=== PATIENT | female | born 1960 | race Caucasian/White ===

== ENCOUNTER 2021-07-19 03:22 | Inpatient (IN) ==
[2021-07-19 03:41] VITALS: BMI 34.2
[2021-07-19] MEDS ORDERED: MORPHINE SULFATE INJ 4 MG IVP ONE ×2 (04:04→07:52)
--- NOTE | 2021-07-19 04:10 | DR.CP ---
HPI <Mamadou Reyes - Last Filed: 07/19/21 08:34> Time Seen Time Seen by Provider: 07/19/21 03:36 PCP Primary Care Physician: DESIREE Saldivar Chief Complaint Doctor Comments: 60 y/o female presents with left chest pain over the past 3-4 days. Had gradual onset, was sharp/stabbing. Has been fairly constant. Worsened tonight, now more severe. Located left lateral chest, under the arm. Does not radiate. Nothing makes it better, nothing makes worse. No h/o DVT/PEs, is not pleuritic. Denies known trauma or recent illness. Has an extensive cardiac hx. Denies dyspnea, N/V diaphoresis, rash. Chief Complaint:: SHARP PAIN UNDER LEFT AXILLA AND RADIATES INTO BACK OFF AND ON X 4 DAYS. SEVERE TONIGHT. UNABLE TO REST. COVID-19 Coronavirus risk:travel/contact w/high risk person: No Has patient experienced Coronavirus symptoms: No Reviewed Nurses Notes Review: Yes Source History Provided: Patient Mode of Arrival Mode of Arrival: Ambulatory Timing Onset of Chief Complaint: 07/15/21 Location Chest Pain Radiation Location: Left Shoulder PMH <Mamadou Reyes - Last Filed: 07/19/21 08:34> PMH Past Medical History: Yes Past Medical History: Asthma, Coronary Artery Disease and Hypertension Past Medical History Comment: FIBROMYALGIA, BONE SPURS Past Surgical History: Yes Surgical History: Cholecystectomy and Hysterectomy Past Surgical History Comment: MESH IMPLANT HERNIA Family History History of Family Medical Conditions: Yes Family Medical History Comment: MOTHER OF COVID RECENTLY Social History Does patient currently use any type of tobacco product: No Have you used tobacco products in the last 12 months: No Type of Tobacco Use: None Does any household member use tobacco: No Alcohol Use: None Do you use any recreational Drugs:: No Lives With: Family Lives Where: Home Travel Risk Coronavirus risk:travel/contact w/high risk person: No Has patient experienced Coronavirus symptoms: No Infectious screening In the last 2 months have you had wt loss of >10#?: NO Have you had fever, night sweats or hemotysis?: No Have you traveled outside the country in the last 6 months?: No Isolation: Standard ROS <Mamadou Reyes - Last Filed: 07/19/21 08:34> Review of Systems Constitutional: No Symptoms Reported Eyes: No Symptoms Reported ENTM: No Symptoms Reported Respiratoy: No Symptoms Reported Cardiovascular: Chest Pain Gastrointestinal/Abdominal: No Symptoms Reported Genitourinary: No Symptoms Reported Neurological: No Symptoms Reported Musculoskeletal: No Symptoms Reported Integumentary: No Symptoms Reported Hematologic/Lymphatic: No Symptoms Reported Endocrine: No Symptoms Reported Psychiatric: No Symptoms Reported All Other Systems: Reviewed and Negative PE <Mamadou Reyes - Last Filed: 07/19/21 08:34> Vitals Vitals: Temperature 96.7 F Pulse Rate [Left] 80 Pulse Rate 67 Respiratory Rate 18 Blood Pressure 141/74 O2 Sat by Pulse Oximetry 96 General Limitations: No Limitations General Appearance: Alert and In Distress Eyes Eye exam: Normal Appearance ENT ENT Exam: Normal Exam Chest Chest Inspection: Normal Inspection and Tenderness (left lateral ) Respiratory Respiratory Exam: Normal Lung Sounds Bilat; negative Accessory Muscle Use and Respiratory Distress Respiratory Exam: Bilateral: Clear to Auscultation Cardiovascular Cardiovascular Exam: Regular Rate, Normal Rhythm and Normal Heart Sounds Abdominal Exam Abdominal Exam: Normal Inspection and Normal Bowel Sounds; negative Tenderness Extremities Extremities Exam: Normal Inspection and Full ROM; negative Edema Back Back Exam: Normal Inspection Neurologic Neurological Exam: Alert, Oriented X3 and CN II-XII Intact; negative Motor Sensory Deficit Psychiatric Psychiatric Exam: Normal Affect Skin Skin Exam: Warm and Dry <Stephanie Gifford - Last Filed: 07/19/21 09:33> Vitals Vitals: Temperature 96.7 F Pulse Rate [Left] 80 Pulse Rate 67 Respiratory Rate 18 Blood Pressure 141/74 O2 Sat by Pulse Oximetry 96 [facility] <Mamadou Reyes - Last Filed: 07/19/21 08:34> Differential Diagnosis Differential Diagnosis: Angina, Chest Wall Pain, Costochondritis, Herpes Zoster, Pneumonia, Pneumothorax and Pulmonary Embolus COURSE <Mamadou Grorodney - Last Filed: 07/19/21 08:34> Treatment Treatment: 60 y/o female with several days of left lateral chest pain, worsened tonight. VSS. + tender to palpation. W/u initiated. EKG with ischemia. Givne IV morphine. D-dimer is very elevated, will pursue with a CTA. ROR <Mamadou Reyes - Last Filed: 07/19/21 08:34> Labs Reviewed Result Diagrams: 07/19/21 04:17 07/19/21 04:17 Laboratory: WBC 4.7 X10^3/uL (3.6-10.0) 07/19/21 04:17 RBC 3.95 X10^6/uL (3.5-5.4) 07/19/21 04:17 Hgb 13.2 g/dL (12.0-16.0) 07/19/21 04:17 Hct 37.8 % (36.0-47.0) 07/19/21 04:17 MCV 95.7 fL (80.0-100.0) 07/19/21 04:17 MCH 33.5 pg (27.0-34.0) 07/19/21 04:17 MCHC 35.0 g/dL (33.0-35.0) 07/19/21 04:17 RDW 13.7 % (11.6-16.5) 07/19/21 04:17 Plt Count 196 X10^3/uL (150.0-450.0) 07/19/21 04:17 MPV 8.3 fL (7.4-11.0) 07/19/21 04:17 Neut % (Auto) 57.9 % (42.0-75.0) 07/19/21 04:17 Lymph % (Auto) 27.7 % (21.0-51.0) 07/19/21 04:17 [place] % (Auto) 9.3 % (0.0-13.0) 07/19/21 04:17 Eos % (Auto) 3.7 % (0.9-2.9) H 07/19/21 04:17 Baso % (Auto) 1.4 % (0.2-1.0) H 07/19/21 04:17 Neut # (Auto) 2.7 x10^3/uL (2.2-4.8) 07/19/21 04:17 Lymph # (Auto) 1.3 X10^3/uL (1.3-2.9) 07/19/21 04:17 [place] # (Auto) 0.4 x10^3/uL (0.3-0.8) 07/19/21 04:17 Eos # (Auto) 0.2 x10^3/uL (0.0-0.2) 07/19/21 04:17 Baso # (Auto) 0.1 X10^3/uL (0.0-0.1) 07/19/21 04:17 Absolute Nucleated RBC 0.1 /100WBC 07/19/21 04:17 PT 13.1 SECONDS (11.8-14.3) 07/19/21 04:17 INR Target Range - 07/19/21 04:17 INR 1.04 (0.8-1.3) 07/19/21 04:17 APTT 29.8 SECONDS (22.9-36.5) 07/19/21 04:17 PTT Comment - 07/19/21 04:17 D-Dimer 3.44 ug/ml (0.0-0.57) H* 07/19/21 04:17 Sodium 143 mmol/L (136-145) 07/19/21 04:17 Corrected Sodium TNP 07/19/21 04:17 Potassium 3.8 mmol/L (3.5-5.1) 07/19/21 04:17 Chloride 107 mmol/L (98-107) 07/19/21 04:17 Carbon Dioxide 31.1 mmol/L (21-32) 07/19/21 04:17 BUN 25 mg/dL (7-18) H 07/19/21 04:17 Creatinine 0.86 mg/dL (0.55-1.02) 07/19/21 04:17 Est GFR (MDRD) Af Amer > 60 (>60) 07/19/21 04:17 Est GFR (MDRD) Non-Af > 60 (>60) 07/19/21 04:17 Glucose 105 mg/dL (65-99) H 07/19/21 04:17 Calcium 8.8 mg/dL (8.5-10.1) 07/19/21 04:17 Corrected Calcium 9.4 mg/dL (8.5-10.1) 07/19/21 04:17 Total Bilirubin 0.20 mg/dL (0.2-1.0) 07/19/21 04:17 AST 18 Units/L (15-37) 07/19/21 04:17 ALT 25 Units/L (12-78) 07/19/21 04:17 Alkaline Phosphatase 98 Units/L (46-116) 07/19/21 04:17 Creatine Kinase 71 Units/L (26-192) 07/19/21 04:17 CK-MB (CK-2) < 1.0 ng/mL (0-4.0) 07/19/21 04:17 CK/CKMB % Calc 1.4 % (<4) 07/19/21 04:17 Troponin I < 0.02 ng/mL (0-1.5) 07/19/21 04:17 Total Protein 6.7 g/dL (6.4-8.2) 07/19/21 04:17 Albumin 3.2 g/dL (3.4-5.0) L 07/19/21 04:17 Globulin 3.5 g/dL (2.5-4.5) 07/19/21 04:17 Albumin/Globulin Ratio 0.9 Ratio (1.1-2.1) L 07/19/21 04:17 SARS CoV-2 RNA Rapid ADEBAYO Negative (NEGATIVE) 07/19/21 08:54 EKG Rate: 92 [place]: Normal Rhythm: NSR Block: None ST: Normal <Stephanie Gifford - Last Filed: 07/19/21 09:33> Labs Reviewed Laboratory: WBC 4.7 X10^3/uL (3.6-10.0) 07/19/21 04:17 RBC 3.95 X10^6/uL (3.5-5.4) 07/19/21 04:17 Hgb 13.2 g/dL (12.0-16.0) 07/19/21 04:17 Hct 37.8 % (36.0-47.0) 07/19/21 04:17 MCV 95.7 fL (80.0-100.0) 07/19/21 04:17 MCH 33.5 pg (27.0-34.0) 07/19/21 04:17 MCHC 35.0 g/dL (33.0-35.0) 07/19/21 04:17 RDW 13.7 % (11.6-16.5) 07/19/21 04:17 Plt Count 196 X10^3/uL (150.0-450.0) 07/19/21 04:17 MPV 8.3 fL (7.4-11.0) 07/19/21 04:17 Neut % (Auto) 57.9 % (42.0-75.0) 07/19/21 04:17 Lymph % (Auto) 27.7 % (21.0-51.0) 07/19/21 04:17 [place] % (Auto) 9.3 % (0.0-13.0) 07/19/21 04:17 Eos % (Auto) 3.7 % (0.9-2.9) H 07/19/21 04:17 Baso % (Auto) 1.4 % (0.2-1.0) H 07/19/21 04:17 Neut # (Auto) 2.7 x10^3/uL (2.2-4.8) 07/19/21 04:17 Lymph # (Auto) 1.3 X10^3/uL (1.3-2.9) 07/19/21 04:17 [place] # (Auto) 0.4 x10^3/uL (0.3-0.8) 07/19/21 04:17 Eos # (Auto) 0.2 x10^3/uL (0.0-0.2) 07/19/21 04:17 Baso # (Auto) 0.1 X10^3/uL (0.0-0.1) 07/19/21 04:17 Absolute Nucleated RBC 0.1 /100WBC 07/19/21 04:17 PT 13.1 SECONDS (11.8-14.3) 07/19/21 04:17 INR Target Range - 07/19/21 04:17 INR 1.04 (0.8-1.3) 07/19/21 04:17 APTT 29.8 SECONDS (22.9-36.5) 07/19/21 04:17 PTT Comment - 07/19/21 04:17 D-Dimer 3.44 ug/ml (0.0-0.57) H* 07/19/21 04:17 Sodium 143 mmol/L (136-145) 07/19/21 04:17 Corrected Sodium TNP 07/19/21 04:17 Potassium 3.8 mmol/L (3.5-5.1) 07/19/21 04:17 Chloride 107 mmol/L (98-107) 07/19/21 04:17 Carbon Dioxide 31.1 mmol/L (21-32) 07/19/21 04:17 BUN 25 mg/dL (7-18) H 07/19/21 04:17 Creatinine 0.86 mg/dL (0.55-1.02) 07/19/21 04:17 Est GFR (MDRD) Af Amer > 60 (>60) 07/19/21 04:17 Est GFR (MDRD) Non-Af > 60 (>60) 07/19/21 04:17 Glucose 105 mg/dL (65-99) H 07/19/21 04:17 Calcium 8.8 mg/dL (8.5-10.1) 07/19/21 04:17 Corrected Calcium 9.4 mg/dL (8.5-10.1) 07/19/21 04:17 Total Bilirubin 0.20 mg/dL (0.2-1.0) 07/19/21 04:17 AST 18 Units/L (15-37) 07/19/21 04:17 ALT 25 Units/L (12-78) 07/19/21 04:17 Alkaline Phosphatase 98 Units/L (46-116) 07/19/21 04:17 Creatine Kinase 71 Units/L (26-192) 07/19/21 04:17 CK-MB (CK-2) < 1.0 ng/mL (0-4.0) 07/19/21 04:17 CK/CKMB % Calc 1.4 % (<4) 07/19/21 04:17 Troponin I < 0.02 ng/mL (0-1.5) 07/19/21 04:17 Total Protein 6.7 g/dL (6.4-8.2) 07/19/21 04:17 Albumin 3.2 g/dL (3.4-5.0) L 07/19/21 04:17 Globulin 3.5 g/dL (2.5-4.5) 07/19/21 04:17 Albumin/Globulin Ratio 0.9 Ratio (1.1-2.1) L 07/19/21 04:17 SARS CoV-2 RNA Rapid ADEBAYO Negative (NEGATIVE) 07/19/21 08:54 Opioid <Mamadou Reyes - Last Filed: 07/19/21 08:34> Opioid Risk Tool Age (Ez box if 16-45): No History of Preadolescent Sexual Abuse: No Total: 0 Total Score Risk Category: Low Risk Copyright: Corby PEREA predicting aberrant behaviors <Stephanie Gifford - Last Filed: 07/19/21 09:33> Opioid Risk Tool Total: 0 Total Score Risk Category: Low Risk
[2021-07-19] MEDS ORDERED: MORPHINE SULFATE INJ 4 MG ONE ×2 (04:16→08:06)
[2021-07-19 04:42] LABS: BASOPHILS # (AUTO) 0.1 X10^3/uL (0.0-0.1); BASOPHILS % (AUTO) 1.4 % (0.2-1.0); EOSINOPHILS # (AUTO) 0.2 x10^3/uL (0.0-0.2); EOSINOPHILS % (AUTO) 3.7 % (0.9-2.9); HEMATOCRIT 37.8 % (36.0-47.0); HEMOGLOBIN 13.2 g/dL (12.0-16.0); LYMPHOCYTES # (AUTO) 1.3 X10^3/uL (1.3-2.9); LYMPHOCYTES % (AUTO) 27.7 % (21.0-51.0); MEAN CORPUSCULAR HEMOGLOBIN 33.5 pg (27.0-34.0); MEAN CORPUSCULAR VOLUME 95.7 fL (80.0-100.0); MEAN PLATELET VOLUME 8.3 fL (7.4-11.0); MONOCYTES # (AUTO) 0.4 x10^3/uL (0.3-0.8); MONOCYTES % (AUTO) 9.3 % (0.0-13.0); NEUTROPHILS # (AUTO) 2.7 x10^3/uL (2.2-4.8); NEUTROPHILS % (AUTO) 57.9 % (42.0-75.0); PLATELET COUNT 196 X10^3/uL (150.0-450.0); RED BLOOD COUNT 3.95 X10^6/uL (3.5-5.4); RED CELL DISTRIBUTION WIDTH 13.7 % (11.6-16.5); WHITE BLOOD COUNT 4.7 X10^3/uL (3.6-10.0)
[2021-07-19 04:58] LABS: ALANINE AMINOTRANSFERASE 25 Units/L (12-78); ALBUMIN 3.2 g/dL (3.4-5.0); ALKALINE PHOSPHATASE 98 Units/L (46-116); ASPARTATE AMINO TRANSFERASE 18 Units/L (15-37); BLOOD UREA NITROGEN 25 mg/dL (7-18); CALCIUM 8.8 mg/dL (8.5-10.1); CARBON DIOXIDE 31.1 mmol/L (21-32); CHLORIDE 107 mmol/L (98-107); CKMB % 1.4 % (<4); COR CA(FOR HYPOALB) 9.4 mg/dL (8.5-10.1); CREATINE KINASE 71 Units/L (26-192); CREATINE KINASE MB < 1.0 ng/mL (0-4.0); CREATININE 0.86 mg/dL (0.55-1.02); SODIUM 143 mmol/L (136-145); TOTAL PROTEIN 6.7 g/dL (6.4-8.2); TROPONIN I < 0.02 ng/mL (0-1.5); eGFR NON BLACK RACES > 60 (>60)
[2021-07-19] MEDS ORDERED: LOVENOX INJ 100 MG SYR SC ONE ×2 (05:27→05:30)
--- NOTE | 2021-07-19 05:50 | RAD ---
PROCEDURE: Chest X-ray 1 View .HISTORY: Chest pain .TECHNIQUE: AP view .COMPARISON: None .TECHNICAL QUALITY: Satisfactory .FINDINGS:Normal size heart .Mediastinum and hilar regions show no masses or lymphadenopathy .Normal central vascularity .No pulmonary consolidation, masses, pleural fluid, or pneumothorax .No acute bony abnormality .IMPRESSION:No active cardiopulmonary disease .Electronically signed by: Giovanny Daniels (Jul 19, 2021 05:49:15)
[2021-07-19] MEDS ORDERED: NS 100 ML IV 100 ML ONE (06:24)
--- NOTE | 2021-07-19 07:34 | CT ---
HISTORYelevated d-dimerSTUDYCTA CHESTCOMPARISONChest x-ray dated same day.TECHNIQUEMultiple axial images of the chest were obtained from the thoracic inlet to the upper abdomen after the administration of IV contrast. 3D reconstructions utilizing axial MIPS imaging was performed and reviewed. Dose reduction techniques including Automated Exposure Control (AEC) and adjustment of mA and kV were utilized.FINDINGSThe mediastinum does not demonstrate significant pathological lymphadenopathy. There is no paracardial effusion observed. The thoracic aorta is normal in its contour without evidence for aneurysmal dilatation. Nonocclusive pulmonary emboli are seen extending from distal right main pulmonary artery throughout the segmental and subsegmental pulmonary arteries of the right lung. Segmental and subsegmental nonocclusive pulmonary emboli are seen within the lingula and left lower lobe. No obvious right heart strain. Moderate to severe coronary artery calcifications. Scattered thoracic aortic calcifications.No suspicious pulmonary nodule, mass, pleural effusion, focal consolidation, or pneumothorax. No obvious pulmonary infarctions. Bibasilar scarring versus atelectasis. The gallbladder is surgically absent. Otherwise, the visualized upper abdominal structures are unremarkable. Degenerative changes of the spine. No aggressive osseous lesions.IMPRESSIONOne. Bilateral pulmonary emboli as above.Two. Other chronic findings as above.Electronically signed by: JONH ASHRAF (Jul 19, 2021 07:31:35)
[2021-07-19] MEDS: NS 1000 ML 1,000 ML IV SCH (11:25)
[2021-07-19] MEDS: ZOFRAN INJ 4 MG VIAL IVP PRN ×2 (11:35→17:18)
--- NOTE | 2021-07-19 15:02 | DR.H&P ---
H&P - History & Physical for Day of: H&P Date: 07/19/21 - Chief Complaint Chief Complaint: LEFT SIDED CHEST PAIN X 3-4 DAYS - History of Present Illness History of Present Illness: IS A 60 YEAR OLD PATIENT OF DR.JAMES RAMÍREZ. SHE IS NOT KNOWN TO OUR PRACTICE. SHE PRESENTED TO THE ER WITH COMPLAINTS OF LEFT SIDED CHEST PAIN FOR THE PAST 3-4 DAYS. SHE REPORTS THAT ONSET WAS GRADUAL. PAIN IS DESCRIBED SHARP, STABBING, AND CONSTANT. SHE RATED PAIN A 6/10. SHE REPORTED THAT PAIN WAS WORSE JUST PRIOR TO ARRIVAL TO THE ER. PAIN IS LOCATED AT THE LEFT LATERAL CHEST, AND UNDER THE LEFT ARM. IT DOES NOT RADIATE. PATIENT REPORTS THAT NOTHING SHE HAS DONE MAKES PAIN ANY BETTER. SHE DENIES KNOWN TRAUMA, ILLNESS, OR HX OF DVT/PEs. DENIED DYSPNEA, N/V, DIAPHORESIS, OR RASH. HER PMH INCLUDES ASTHMA, CAD, HTN, FIBROMYALGIA, BONE SPURS, CHOLECYSTECTOMY, HYSTERECTOMY, MESH IMPLANT FOR HERNIA. ON ARRIVAL TO THE ER, VITALS WERE 96.7-93-18-96%-144/78. LABS WERE OBTAINED. ABNORMAL LAB VALUES INCLUDE THE FOLLOWING: D-DIMER 3.44, BUN 25, GLUCOSE 105, ALBUMIN 3.2. CARDIAC ENZYMES WERE WITHIN NORMAL LIMITS. COVID-19 NEGATIVE. EKG OBTAINED AND REVEALED: SINUS RHYTHM WITH HR 92. CHEST XRAY OBTAINED AND REVEALED: No active cardiopulmonary disease. A CHEST CTA WAS OBTAINED AND REVEALED: The mediastinum does not demonstrate significant pathological lymphadenopathy. There is no paracardial effusion observed. The thoracic aorta is normal in its contour without evidence for aneurysmal dilatation. Nonocclusive pulmonary emboli are seen extending from distal right main pulmonary artery throughout the segmental and subsegmental pulmonary arteries of the right lung. Segmental and subsegmental nonocclusive pulmonary emboli are seen within the lingula and left lower lobe. No obvious right heart strain. Moderate to severe coronary artery calcifications. Scattered thoracic aortic calcifications. No suspicious pulmonary nodule, mass, pleural effusion, focal consolidation, or pneumothorax. No obvious pulmonary infarctions. Bibasilar scarring versus atelectasis. The gallbladder is surgically absent. Otherwise, the visualized upper abdominal structures are unremarkable. Degenerative changes of the spine. No aggressive osseous lesions. IN THE ER, SHE WAS GIVEN MORPHINE 4MG IV X 2 DOSES, LOVENOX 100MG SC X 1 DOSE. [facility]. WE WILL OBTAIN A HYPERCOAGULABLE PANEL. WE WILL START NORMAL SALINE AT 80 ML/HR, A HEPARIN DRIP, ZOFRAN 4MG IV Q6H PRN, AND NORCO 7.5/325MG PO Q6H PRN PAIN. OTHERWISE, WE PLAN TO FOLLOW UP WITH AM LABS AND CONTINUE TO MONITOR. TIME SPENT ON CLINICAL ASSESSMENT, REVIEWING LABS AND IMAGING, DECISION MAKING, AND DOCUMENTATION GREATER THAN 75 MINUTES. - Past Medical History Past Medical History: Coronary Artery Disease, Hypertension, Asthma - Past Surgical History Surgical History: Cholecystectomy, Hysterectomy - Social History Does patient currently use any type of tobacco product: No Have you used tobacco products in the last 12 months: No Type of Tobacco Use: None Does any household member use tobacco: No Alcohol Use: None - Medications Home Medications: Penicillins Allergy (Verified 07/19/21 03:43) - Review of Systems Constitutional: Weakness Eyes: No Symptoms Reported ENT: No Symptoms Reported Respiratory: denies: Cough, Shortness of Breath, SOB with Excertion Cardiovascular: Chest Pain. denies: Edema, Light Headedness Gastrointestinal: No Symptoms Reported Genitourinary: No Symptoms Reported Musculoskeletal: No Symptoms Reported Skin: No Symptoms Reported Neurological: Weakness - Physical Exam Vital Signs: Temperature 97.6 F Pulse Rate [Left] 69 Pulse Rate 65 Respiratory Rate 18 Blood Pressure [Right Arm] 128/66 Blood Pressure 141/68 O2 Sat by Pulse Oximetry 98 Oriented: Normal Eyes: Normal Ear: Normal Nose: Normal Throat: Normal Respiratory: Diminished Throughout Cardiovascular: Normal : Normal Auscultation: Bowel Sounds: Normal Palpation: Normal Tenderness: Normal Skin: Normal Musculoskeletal: Normal Psychiatric: Normal Mood Description: Calm Affect: Normal Speech Pattern: Clear - Assessment/Plan (1) Bilateral pulmonary embolism Status: Acute Plan: ADMIT, HYPERCOAG PANEL, NORMAL SALINE AT 80 ML/HR, A HEPARIN DRIP, ZOFRAN 4MG IV Q6H PRN, AND NORCO 7.5/325MG PO Q6H PRN PAIN - Allergies Allergies/Adverse Reactions: Allergies Allergy/AdvReac Type Severity Reaction Status Date / Time Penicillins Allergy Verified 07/19/21 03:43
[2021-07-19] MEDS: NORCO 7.5/325 MG TAB PO PRN (15:20)
[2021-07-19 15:58] LABS: ERYTHROCYTE SEDIMENTATION RATE 18 MM/HOUR (0-20)
[2021-07-19] MEDS ORDERED: HEPARIN SODIUM INJ 5000 UNITS IVP ONE (18:05)
[2021-07-19] MEDS ORDERED: HEPARIN SODIUM INJ 5000 UNITS ONE (18:13)
[2021-07-19] MEDS ORDERED: HEPARIN SODIUM IN D5W 25,000 UNITS/500 ML BAG ONE (18:33)
[2021-07-19] MEDS: HEPARIN SODIUM IN D5W 25,000 UNITS/500 ML BAG IV PRN (18:36)
[2021-07-20] MEDS: NS 1000 ML 1,000 ML IV SCH ×3 (02:08→18:03)
[2021-07-20] MEDS: NORCO 7.5/325 MG TAB PO PRN ×2 (05:55→20:48)
--- NOTE | 2021-07-20 07:01 | RAD ---
HISTORYChest pain SOBSTUDYPortable AP [id number] normal heart size. The lungs remain grossly clear although diaphragm elevation/pulmonary underinflation limits evaluation of the lower lobes especially the rig ht. There is no consolidation, atelectasis or pleural fluid identified.IMPRESSIONConsidering low volu me lungs, no interval change identified.Electronically signed by: RAFY GALARZA (Jul 20, 2021 06:58: 42)
[2021-07-20 07:25] LABS: EOSINOPHILS # (AUTO) 0.2 x10^3/uL (0.0-0.2); EOSINOPHILS % (AUTO) 3.9 % (0.9-2.9); LYMPHOCYTES # (AUTO) 1.3 X10^3/uL (1.3-2.9); LYMPHOCYTES % (AUTO) 26.3 % (21.0-51.0); MEAN CORPUSCULAR HEMOGLOBIN 32.8 pg (27.0-34.0); MEAN CORPUSCULAR VOLUME 96.6 fL (80.0-100.0); MEAN PLATELET VOLUME 8.4 fL (7.4-11.0); MONOCYTES # (AUTO) 0.4 x10^3/uL (0.3-0.8); MONOCYTES % (AUTO) 8.2 % (0.0-13.0); NEUTROPHILS % (AUTO) 60.6 % (42.0-75.0); PLATELET COUNT 179 X10^3/uL (150.0-450.0); RED BLOOD COUNT 4.25 X10^6/uL (3.5-5.4); RED CELL DISTRIBUTION WIDTH 13.5 % (11.6-16.5); WHITE BLOOD COUNT 4.9 X10^3/uL (3.6-10.0)
[2021-07-20 07:33] LABS: ALANINE AMINOTRANSFERASE 31 Units/L (12-78); ALBUMIN 3.3 g/dL (3.4-5.0); ALKALINE PHOSPHATASE 106 Units/L (46-116); ASPARTATE AMINO TRANSFERASE 28 Units/L (15-37); BLOOD UREA NITROGEN 10 mg/dL (7-18); CALCIUM 8.6 mg/dL (8.5-10.1); CHLORIDE 106 mmol/L (98-107); COR CA(FOR HYPOALB) 9.2 mg/dL (8.5-10.1); CREATININE 0.64 mg/dL (0.55-1.02); SODIUM 142 mmol/L (136-145); TOTAL PROTEIN 7.1 g/dL (6.4-8.2); eGFR NON BLACK RACES > 60 (>60)
[2021-07-20] MEDS ORDERED: IVERMECTIN PO ONE (10:00)
[2021-07-20] MEDS: XANAX PO PRN (12:52)
[2021-07-20] MEDS: HEPARIN SODIUM IN D5W 25,000 UNITS/500 ML BAG IV PRN (15:15)
[2021-07-21] MEDS: XANAX PO PRN ×3 (00:25→22:00)
[2021-07-21] MEDS: NORCO 7.5/325 MG TAB PO PRN ×2 (04:10→10:01)
[2021-07-21 05:50] LABS: BASOPHILS # (AUTO) 0.1 X10^3/uL (0.0-0.1); BASOPHILS % (AUTO) 1.3 % (0.2-1.0); EOSINOPHILS # (AUTO) 0.2 x10^3/uL (0.0-0.2); EOSINOPHILS % (AUTO) 4.1 % (0.9-2.9); HEMATOCRIT 40.4 % (36.0-47.0); HEMOGLOBIN 13.8 g/dL (12.0-16.0); LYMPHOCYTES # (AUTO) 1.6 X10^3/uL (1.3-2.9); LYMPHOCYTES % (AUTO) 35.6 % (21.0-51.0); MEAN CORPUSCULAR HEMOGLOBIN 32.9 pg (27.0-34.0); MEAN CORPUSCULAR VOLUME 96.7 fL (80.0-100.0); MEAN PLATELET VOLUME 8.8 fL (7.4-11.0); MONOCYTES # (AUTO) 0.4 x10^3/uL (0.3-0.8); MONOCYTES % (AUTO) 8.2 % (0.0-13.0); NEUTROPHILS # (AUTO) 2.2 x10^3/uL (2.2-4.8); NEUTROPHILS % (AUTO) 50.8 % (42.0-75.0); PLATELET COUNT 188 X10^3/uL (150.0-450.0); RED BLOOD COUNT 4.18 X10^6/uL (3.5-5.4); RED CELL DISTRIBUTION WIDTH 13.8 % (11.6-16.5); WHITE BLOOD COUNT 4.4 X10^3/uL (3.6-10.0)
[2021-07-21 06:13] LABS: ALANINE AMINOTRANSFERASE 45 Units/L (12-78); ALBUMIN 3.3 g/dL (3.4-5.0); ALKALINE PHOSPHATASE 103 Units/L (46-116); ASPARTATE AMINO TRANSFERASE 34 Units/L (15-37); BLOOD UREA NITROGEN 10 mg/dL (7-18); CALCIUM 8.7 mg/dL (8.5-10.1); CARBON DIOXIDE 28.3 mmol/L (21-32); CHLORIDE 105 mmol/L (98-107); COR CA(FOR HYPOALB) 9.3 mg/dL (8.5-10.1); CREATININE 0.69 mg/dL (0.55-1.02); SODIUM 142 mmol/L (136-145); eGFR NON BLACK RACES > 60 (>60)
[2021-07-21] MEDS: NS 1000 ML 1,000 ML IV SCH ×2 (10:01→23:00)
[2021-07-21] MEDS ORDERED: HEPARIN SODIUM IN D5W 25,000 UNITS/500 ML BAG ONE (10:07)
[2021-07-21] MEDS: HEPARIN SODIUM IN D5W 25,000 UNITS/500 ML BAG IV PRN (11:20)
--- NOTE | 2021-07-21 12:44 | VAS ---
HISTORYCURRENT PEExtremity pain, swelling, and edemaStudy: Bilateral lower extremity Doppler venous ultrasound.TECHNIQUE: Multiple frost scale and color flow Doppler images of the deep venous system were obtained of the [right and left] lower extremity.FINDINGS:The deep venous system of the [right and left lower extremities were] evaluated from the level of the common femoral veins through the popliteal veins, bilaterally. Normal color flow and augmentation can be observed. In addition, normal compression is seen throughout the deep venous system. [No Ortega's cyst is seen].IMPRESSION:1. Negative examination for DVT.Electronically signed by: JAZLYN GARCIA III (Jul 21, 2021 12:42:27)
--- NOTE | 2021-07-21 12:50 | VAS ---
HISTORYCURRENT PESTUDYUPPER EXT duplex VENOUS ultrasound, BILATCOMPARISONNoneTECHNIQUEMultiple frost scale and color flow Doppler images of the deep venous system were obtained of the right and left upper extremity.FINDINGSThe deep venous system of the right and left upper extremities were evaluated from the level of the internal jugular veins to the ulnar veins. The left brachial vein is unable to be imaged due to IV. Normal color flow and augmentation can be observed. In addition, normal compression is seen throughout the deep venous system.IMPRESSIONNegative for DVT in the bilateral upper extremities. Left brachial vein is not evaluated.Electronically signed by: Melquiades Cesar (Jul 21, 2021 12:47:55)
[2021-07-21] MEDS: MORPHINE SULFATE INJ 2 MG INJ IVP PRN (13:49)
--- NOTE | 2021-07-21 18:58 | PCM.PROG ---
Progress Note - Progress Note for Day of Date of Exam: 07/20/21 - Subjective Subjective: WAS ADMITTED FOR TREATMENT OF BILATERAL PULMONARY EMBOLISM. TODAY, SHE IS ALERT AND ORIENTED, LYING IN BED ON MORNING ROUNDS. SHE REPORTS SHORTNESS OF BREATH, WEAKNESS, AND GENERALIZED PAIN TODAY. ON EXAMINATION, HEART IS REGULAR IN RATE AND RHYTHM. BILATERAL LUNGS ARE NOTED WITH DIMINISHED LUNG SOUNDS THROUGHOUT. ABDOMEN IS ROUND, SOFT, AND NON-TENDER WITH NORMAL BOWEL SOUNDS NOTED IN ALL QUADRNATS. TRACE EDEMA NOTED TO BILATERAL LOWER EXTREMITIES. HER VITALS THIS MORNING ARE: 98.4-68-18-97%-138/62. LABS WERE OBTAINED. ABNORMAL LAB VALUES INCLUDE THE FOLLOWING: GLUCOSE 104, ALBUMIN 3.3. SHE IS HEMODYNAMICALLY STABLE. A HYPERCOAG PANEL IS PENDING. SHE IS CURRENTLY RECEIVING NORMAL SALINE AT 80 ML/HR, A HEPARIN DRIP, ZOFRAN 4MG IV Q6H PRN, AND NORCO 7.5/325MG PO Q6H PRN PAIN. WE WILL REVIEW HER HOME MEDICATIONS AND RESUME APPROPRIATE. OTHERWISE, WE PLAN TO FOLLOW UP WITH AM LABS AND CONTINUE TO MONITOR. TIME SPENT ON CLINICAL ASSESSMENT, REVIEWING LABS AND IMAGING, DECISION MAKING, AND DOCUMENTATION GREATER THAN 45 MINUTES. - Past Medical Family Social History Past Med/Fam/Surg Hx: No changes since H&P Allergies: Allergies Penicillins Allergy (Verified 07/19/21 03:43) - Review of Systems ROS: No change since H&P - Vital Signs and I&O's Vital Signs: Temperature 96.2 F Pulse Rate [Left] 69 Pulse Rate 65 Respiratory Rate 22 Blood Pressure [Right Arm] 143/68 Blood Pressure 141/68 O2 Sat by Pulse Oximetry 97 Intake and Output: Intake & Output 07/19/21 07/20/21 07/21/21 07/22/21 11:59 11:59 11:59 11:59 Intake Total 2483 / 2483 4135 / 4135 1654 / 1654 Output Total 3 / 3 Balance 2483 / 2483 4132 / 4132 1654 / 1654 - Physical Exam Oriented: Normal Eyes: Normal Ear: Normal Nose: Normal Throat: Normal Respiratory: Generalized, Diminished Cardiovascular: Normal : Normal Auscultation: Bowel Sounds: Normal Palpation: Normal Tenderness: Normal Skin: Normal Musculoskeletal: Normal Psychiatric: Normal Mood Description: Calm Affect: Normal Speech Pattern: Clear, Appropriate - Laboratory and Diagnostics Result Diagrams: 07/21/21 04:09 07/21/21 04:09 Labs: Laboratory WBC 4.4 X10^3/uL (3.6-10.0) 07/21/21 04:09 RBC 4.18 X10^6/uL (3.5-5.4) 07/21/21 04:09 Hgb 13.8 g/dL (12.0-16.0) 07/21/21 04:09 Hct 40.4 % (36.0-47.0) 07/21/21 04:09 MCV 96.7 fL (80.0-100.0) 07/21/21 04:09 MCH 32.9 pg (27.0-34.0) 07/21/21 04:09 MCHC 34.0 g/dL (33.0-35.0) 07/21/21 04:09 RDW 13.8 % (11.6-16.5) 07/21/21 04:09 Plt Count 188 X10^3/uL (150.0-450.0) 07/21/21 04:09 MPV 8.8 fL (7.4-11.0) 07/21/21 04:09 Neut % (Auto) 50.8 % (42.0-75.0) 07/21/21 04:09 Lymph % (Auto) 35.6 % (21.0-51.0) 07/21/21 04:09 [place] % (Auto) 8.2 % (0.0-13.0) 07/21/21 04:09 Eos % (Auto) 4.1 % (0.9-2.9) H 07/21/21 04:09 Baso % (Auto) 1.3 % (0.2-1.0) H 07/21/21 04:09 Neut # (Auto) 2.2 x10^3/uL (2.2-4.8) 07/21/21 04:09 Lymph # (Auto) 1.6 X10^3/uL (1.3-2.9) 07/21/21 04:09 [place] # (Auto) 0.4 x10^3/uL (0.3-0.8) 07/21/21 04:09 Eos # (Auto) 0.2 x10^3/uL (0.0-0.2) 07/21/21 04:09 Baso # (Auto) 0.1 X10^3/uL (0.0-0.1) 07/21/21 04:09 Absolute Nucleated RBC 0.1 /100WBC 07/21/21 04:09 ESR 18 MM/HOUR (0-20) 07/19/21 15:24 PT 13.9 SECONDS (11.8-14.3) 07/19/21 15:24 INR Target Range - 07/19/21 15:24 INR 1.12 (0.8-1.3) 07/19/21 15:24 APTT 104.7 SECONDS (22.9-36.5) H 07/21/21 13:17 PTT Comment - 07/21/21 13:17 D-Dimer 3.44 ug/ml (0.0-0.57) H* 07/19/21 04:17 Sodium 142 mmol/L (136-145) 07/21/21 04:09 Corrected Sodium TNP 07/21/21 04:09 Potassium 3.7 mmol/L (3.5-5.1) 07/21/21 04:09 Chloride 105 mmol/L (98-107) 07/21/21 04:09 Carbon Dioxide 28.3 mmol/L (21-32) 07/21/21 04:09 BUN 10 mg/dL (7-18) 07/21/21 04:09 Creatinine 0.69 mg/dL (0.55-1.02) 07/21/21 04:09 Est GFR (MDRD) Af Amer > 60 (>60) 07/21/21 04:09 Est GFR (MDRD) Non-Af > 60 (>60) 07/21/21 04:09 Glucose 92 mg/dL (65-99) 07/21/21 04:09 Calcium 8.7 mg/dL (8.5-10.1) 07/21/21 04:09 Corrected Calcium 9.3 mg/dL (8.5-10.1) 07/21/21 04:09 Total Bilirubin 0.30 mg/dL (0.2-1.0) 07/21/21 04:09 AST 34 Units/L (15-37) 07/21/21 04:09 ALT 45 Units/L (12-78) 07/21/21 04:09 Alkaline Phosphatase 103 Units/L (46-116) 07/21/21 04:09 Creatine Kinase 71 Units/L (26-192) 07/19/21 04:17 CK-MB (CK-2) < 1.0 ng/mL (0-4.0) 07/19/21 04:17 CK/CKMB % Calc 1.4 % (<4) 07/19/21 04:17 Troponin I < 0.02 ng/mL (0-1.5) 07/19/21 04:17 C-Reactive Protein 6.50 mg/L (0-3.0) H 07/19/21 15:24 Total Protein 7.0 g/dL (6.4-8.2) 07/21/21 04:09 Albumin 3.3 g/dL (3.4-5.0) L 07/21/21 04:09 Globulin 3.7 g/dL (2.5-4.5) 07/21/21 04:09 Albumin/Globulin Ratio 0.9 Ratio (1.1-2.1) L 07/21/21 04:09 SARS CoV-2 RNA Rapid ADEBAYO Negative (NEGATIVE) 07/19/21 08:54 - Plan (1) Bilateral pulmonary embolism Status: Acute Plan: HYPERCOAG PANEL, NORMAL SALINE AT 80 ML/HR, A HEPARIN DRIP, ZOFRAN 4MG IV Q6H PRN, AND NORCO 7.5/325MG PO Q6H PRN PAIN
--- NOTE | 2021-07-21 19:01 | PCM.PROG ---
Progress Note - Progress Note for Day of Date of Exam: 07/21/21 - Subjective Subjective: WAS ADMITTED FOR TREATMENT OF BILATERAL PULMONARY EMBOLISM. TODAY, SHE IS ALERT AND ORIENTED, LYING IN BED ON MORNING ROUNDS. SHE REPORTS SHORTNESS OF BREATH, WEAKNESS, AND GENERALIZED PAIN TODAY. ON EXAMINATION, HEART IS REGULAR IN RATE AND RHYTHM. BILATERAL LUNGS ARE NOTED WITH DIMINISHED LUNG SOUNDS THROUGHOUT. ABDOMEN IS ROUND, SOFT, AND NON-TENDER WITH NORMAL BOWEL SOUNDS NOTED IN ALL QUADRNATS. TRACE EDEMA NOTED TO BILATERAL LOWER EXTREMITIES. HER VITALS THIS MORNING ARE: 98.3-86-20-98%-144/67. LABS WERE OBTAINED. SHE IS HEMODYNAMICALLY STABLE. A HYPERCOAG PANEL IS PENDING. WE OBTAINED UPPER AND LOWER EXTREMITY VENOUS DOPPLERS. ALL WERE NEGATIVE FOR DVT. SHE IS CURRENTLY RECEIVING NORMAL SALINE AT 80 ML/HR, A HEPARIN DRIP, ZOFRAN 4MG IV Q6H PRN, NORCO 7.5/325MG PO Q6H PRN PAIN, XANAX 0.5MG PO TID PRN, CELEBREX 200MG PO BID, FLEXERIL 10MG PO BID, COLACE 200MG PO HS, LISINOPRIL 10MG PO DAILY, AND MORPHINE SULFATE 2MG IV Q4H PRN. WE WILL CONTINUE WITH CURRENT PLAN O F CARE TODAY. OTHERWISE, WE PLAN TO FOLLOW UP WITH AM LABS AND CONTINUE TO MONITOR. TIME SPENT ON CLINICAL ASSESSMENT, REVIEWING LABS AND IMAGING, DECISION MAKING, AND DOCUMENTATION GREATER THAN 45 MINUTES. - Past Medical Family Social History Past Med/Fam/Surg Hx: No changes since H&P Allergies: Allergies Penicillins Allergy (Verified 07/19/21 03:43) - Review of Systems ROS: No change since H&P - Vital Signs and I&O's Vital Signs: Temperature 96.2 F Pulse Rate [Left] 69 Pulse Rate 65 Respiratory Rate 22 Blood Pressure [Right Arm] 143/68 Blood Pressure 141/68 O2 Sat by Pulse Oximetry 97 Intake and Output: Intake & Output 07/19/21 07/20/21 07/21/21 07/22/21 11:59 11:59 11:59 11:59 Intake Total 2483 / 2483 4135 / 4135 1654 / 1654 Output Total 3 / 3 Balance 2483 / 2483 4132 / 4132 1654 / 1654 - Physical Exam Oriented: Normal Eyes: Normal Ear: Normal Nose: Normal Throat: Normal Respiratory: Generalized, Diminished Cardiovascular: Normal : Normal Auscultation: Bowel Sounds: Normal Palpation: Normal Tenderness: Normal Skin: Normal Musculoskeletal: Normal Psychiatric: Normal Mood Description: Calm Affect: Normal Speech Pattern: Clear, Appropriate - Laboratory and Diagnostics Result Diagrams: 07/21/21 04:09 07/21/21 04:09 Labs: Laboratory WBC 4.4 X10^3/uL (3.6-10.0) 07/21/21 04:09 RBC 4.18 X10^6/uL (3.5-5.4) 07/21/21 04:09 Hgb 13.8 g/dL (12.0-16.0) 07/21/21 04:09 Hct 40.4 % (36.0-47.0) 07/21/21 04:09 MCV 96.7 fL (80.0-100.0) 07/21/21 04:09 MCH 32.9 pg (27.0-34.0) 07/21/21 04:09 MCHC 34.0 g/dL (33.0-35.0) 07/21/21 04:09 RDW 13.8 % (11.6-16.5) 07/21/21 04:09 Plt Count 188 X10^3/uL (150.0-450.0) 07/21/21 04:09 MPV 8.8 fL (7.4-11.0) 07/21/21 04:09 Neut % (Auto) 50.8 % (42.0-75.0) 07/21/21 04:09 Lymph % (Auto) 35.6 % (21.0-51.0) 07/21/21 04:09 [place] % (Auto) 8.2 % (0.0-13.0) 07/21/21 04:09 Eos % (Auto) 4.1 % (0.9-2.9) H 07/21/21 04:09 Baso % (Auto) 1.3 % (0.2-1.0) H 07/21/21 04:09 Neut # (Auto) 2.2 x10^3/uL (2.2-4.8) 07/21/21 04:09 Lymph # (Auto) 1.6 X10^3/uL (1.3-2.9) 07/21/21 04:09 [place] # (Auto) 0.4 x10^3/uL (0.3-0.8) 07/21/21 04:09 Eos # (Auto) 0.2 x10^3/uL (0.0-0.2) 07/21/21 04:09 Baso # (Auto) 0.1 X10^3/uL (0.0-0.1) 07/21/21 04:09 Absolute Nucleated RBC 0.1 /100WBC 07/21/21 04:09 ESR 18 MM/HOUR (0-20) 07/19/21 15:24 PT 13.9 SECONDS (11.8-14.3) 07/19/21 15:24 INR Target Range - 07/19/21 15:24 INR 1.12 (0.8-1.3) 07/19/21 15:24 APTT 104.7 SECONDS (22.9-36.5) H 07/21/21 13:17 PTT Comment - 07/21/21 13:17 D-Dimer 3.44 ug/ml (0.0-0.57) H* 07/19/21 04:17 Sodium 142 mmol/L (136-145) 07/21/21 04:09 Corrected Sodium TNP 07/21/21 04:09 Potassium 3.7 mmol/L (3.5-5.1) 07/21/21 04:09 Chloride 105 mmol/L (98-107) 07/21/21 04:09 Carbon Dioxide 28.3 mmol/L (21-32) 07/21/21 04:09 BUN 10 mg/dL (7-18) 07/21/21 04:09 Creatinine 0.69 mg/dL (0.55-1.02) 07/21/21 04:09 Est GFR (MDRD) Af Amer > 60 (>60) 07/21/21 04:09 Est GFR (MDRD) Non-Af > 60 (>60) 07/21/21 04:09 Glucose 92 mg/dL (65-99) 07/21/21 04:09 Calcium 8.7 mg/dL (8.5-10.1) 07/21/21 04:09 Corrected Calcium 9.3 mg/dL (8.5-10.1) 07/21/21 04:09 Total Bilirubin 0.30 mg/dL (0.2-1.0) 07/21/21 04:09 AST 34 Units/L (15-37) 07/21/21 04:09 ALT 45 Units/L (12-78) 07/21/21 04:09 Alkaline Phosphatase 103 Units/L (46-116) 07/21/21 04:09 Creatine Kinase 71 Units/L (26-192) 07/19/21 04:17 CK-MB (CK-2) < 1.0 ng/mL (0-4.0) 07/19/21 04:17 CK/CKMB % Calc 1.4 % (<4) 07/19/21 04:17 Troponin I < 0.02 ng/mL (0-1.5) 07/19/21 04:17 C-Reactive Protein 6.50 mg/L (0-3.0) H 07/19/21 15:24 Total Protein 7.0 g/dL (6.4-8.2) 07/21/21 04:09 Albumin 3.3 g/dL (3.4-5.0) L 07/21/21 04:09 Globulin 3.7 g/dL (2.5-4.5) 07/21/21 04:09 Albumin/Globulin Ratio 0.9 Ratio (1.1-2.1) L 07/21/21 04:09 SARS CoV-2 RNA Rapid ADEBAYO Negative (NEGATIVE) 07/19/21 08:54 - Plan (1) Bilateral pulmonary embolism Status: Acute Plan: NORMAL SALINE AT 80 ML/HR, A HEPARIN DRIP, ZOFRAN 4MG IV Q6H PRN, NORCO 7.5/325MG PO Q6H PRN PAIN, XANAX 0.5MG PO TID PRN, CELEBREX 200MG PO BID, FLEXERIL 10MG PO BID, COLACE 200MG PO HS, LISINOPRIL 10MG PO DAILY, AND MORPHINE SULFATE 2MG IV Q4H PRN.
[2021-07-21] MEDS: CELEBREX PO SCH (21:00)
[2021-07-21] MEDS: FLEXERIL TAB 10 MG PO SCH (21:00)
[2021-07-21] MEDS: COLACE CAP 100 MG PO SCH (21:00)
[2021-07-22] MEDS: NS 1000 ML 1,000 ML IV SCH ×3 (05:34→17:32)
[2021-07-22] MEDS: MORPHINE SULFATE INJ 2 MG INJ IVP PRN ×2 (05:39→23:10)
[2021-07-22 06:32] LABS: BASOPHILS # (AUTO) 0.1 X10^3/uL (0.0-0.1); EOSINOPHILS # (AUTO) 0.2 x10^3/uL (0.0-0.2); EOSINOPHILS % (AUTO) 6.2 % (0.9-2.9); HEMATOCRIT 38.7 % (36.0-47.0); HEMOGLOBIN 13.3 g/dL (12.0-16.0); LYMPHOCYTES # (AUTO) 1.3 X10^3/uL (1.3-2.9); LYMPHOCYTES % (AUTO) 39.1 % (21.0-51.0); MEAN CORPUSCULAR HEMOGLOBIN 32.9 pg (27.0-34.0); MEAN CORPUSCULAR HGB CONC 34.4 g/dL (33.0-35.0); MEAN CORPUSCULAR VOLUME 95.7 fL (80.0-100.0); MEAN PLATELET VOLUME 8.1 fL (7.4-11.0); MONOCYTES # (AUTO) 0.4 x10^3/uL (0.3-0.8); MONOCYTES % (AUTO) 10.9 % (0.0-13.0); NEUTROPHILS # (AUTO) 1.4 x10^3/uL (2.2-4.8); NEUTROPHILS % (AUTO) 41.8 % (42.0-75.0); PLATELET COUNT 163 X10^3/uL (150.0-450.0); RED BLOOD COUNT 4.04 X10^6/uL (3.5-5.4); RED CELL DISTRIBUTION WIDTH 13.7 % (11.6-16.5); WHITE BLOOD COUNT 3.4 X10^3/uL (3.6-10.0)
[2021-07-22 07:38] LABS: ALANINE AMINOTRANSFERASE 44 Units/L (12-78); ALBUMIN 2.9 g/dL (3.4-5.0); ALKALINE PHOSPHATASE 92 Units/L (46-116); ASPARTATE AMINO TRANSFERASE 33 Units/L (15-37); BLOOD UREA NITROGEN 9 mg/dL (7-18); CALCIUM 8.2 mg/dL (8.5-10.1); CARBON DIOXIDE 28.3 mmol/L (21-32); CHLORIDE 106 mmol/L (98-107); COR CA(FOR HYPOALB) 9.1 mg/dL (8.5-10.1); CREATININE 0.61 mg/dL (0.55-1.02); SODIUM 142 mmol/L (136-145); TOTAL PROTEIN 6.3 g/dL (6.4-8.2); eGFR NON BLACK RACES > 60 (>60)
[2021-07-22] MEDS ORDERED: MILK OF MAGNESIA PO PRN (08:12)
[2021-07-22] MEDS: CELEBREX PO SCH ×2 (09:51→21:00)
[2021-07-22] MEDS: ZESTRIL TAB 10 MG PO SCH (09:52)
[2021-07-22] MEDS: FLEXERIL TAB 10 MG PO SCH ×2 (09:52→21:00)
[2021-07-22] MEDS: HEPARIN SODIUM IN D5W 25,000 UNITS/500 ML BAG IV PRN (18:19)
[2021-07-22] MEDS: COUMADIN TAB 5 MG (JANTOVEN) PO SCH (21:00)
[2021-07-22] MEDS: XANAX PO PRN (21:00)
[2021-07-22] MEDS: COLACE CAP 100 MG PO SCH (21:00)
[2021-07-23] MEDS: NS 1000 ML 1,000 ML IV SCH ×3 (05:18→20:00)
[2021-07-23] MEDS: NORCO 7.5/325 MG TAB PO PRN (05:36)
[2021-07-23 06:27] LABS: BASOPHILS # (AUTO) 0.1 X10^3/uL (0.0-0.1); BASOPHILS % (AUTO) 1.4 % (0.2-1.0); EOSINOPHILS # (AUTO) 0.2 x10^3/uL (0.0-0.2); EOSINOPHILS % (AUTO) 5.7 % (0.9-2.9); HEMATOCRIT 40.8 % (36.0-47.0); HEMOGLOBIN 13.8 g/dL (12.0-16.0); LYMPHOCYTES % (AUTO) 45.9 % (21.0-51.0); MEAN CORPUSCULAR HEMOGLOBIN 32.6 pg (27.0-34.0); MEAN CORPUSCULAR HGB CONC 33.9 g/dL (33.0-35.0); MEAN CORPUSCULAR VOLUME 96.2 fL (80.0-100.0); MEAN PLATELET VOLUME 8.8 fL (7.4-11.0); MONOCYTES # (AUTO) 0.3 x10^3/uL (0.3-0.8); MONOCYTES % (AUTO) 7.8 % (0.0-13.0); NEUTROPHILS # (AUTO) 1.7 x10^3/uL (2.2-4.8); NEUTROPHILS % (AUTO) 39.2 % (42.0-75.0); PLATELET COUNT 176 X10^3/uL (150.0-450.0); RED BLOOD COUNT 4.25 X10^6/uL (3.5-5.4); RED CELL DISTRIBUTION WIDTH 13.8 % (11.6-16.5); WHITE BLOOD COUNT 4.3 X10^3/uL (3.6-10.0)
[2021-07-23 07:02] LABS: ALANINE AMINOTRANSFERASE 54 Units/L (12-78); ALBUMIN 3.1 g/dL (3.4-5.0); ALKALINE PHOSPHATASE 96 Units/L (46-116); ASPARTATE AMINO TRANSFERASE 39 Units/L (15-37); BLOOD UREA NITROGEN 7 mg/dL (7-18); CALCIUM 8.5 mg/dL (8.5-10.1); CARBON DIOXIDE 24.3 mmol/L (21-32); CHLORIDE 107 mmol/L (98-107); COR CA(FOR HYPOALB) 9.2 mg/dL (8.5-10.1); CREATININE 0.57 mg/dL (0.55-1.02); SODIUM 143 mmol/L (136-145); TOTAL PROTEIN 6.7 g/dL (6.4-8.2); eGFR NON BLACK RACES > 60 (>60)
[2021-07-23] MEDS: FLEXERIL TAB 10 MG PO SCH ×2 (08:28→20:27)
[2021-07-23] MEDS: CELEBREX PO SCH ×2 (08:28→20:26)
[2021-07-23] MEDS: ZESTRIL TAB 10 MG PO SCH (08:29)
[2021-07-23] MEDS: XANAX PO PRN ×2 (08:35→20:26)
[2021-07-23] MEDS ORDERED: NYSTATIN POWDER TOP PRN (10:58)
--- NOTE | 2021-07-23 16:36 | PCM.PROG ---
Progress Note - Progress Note for Day of Date of Exam: 07/22/21 - Subjective Subjective: WAS ADMITTED FOR TREATMENT OF BILATERAL PULMONARY EMBOLISM. TODAY, SHE IS ALERT AND ORIENTED, LYING IN BED ON MORNING ROUNDS. SHE REPORTS SHORTNESS OF BREATH, WEAKNESS, AND GENERALIZED PAIN TODAY. SHE DOES ADMIT TO SLIGHT IMPROVEMENT IN SYMPTOMS SINCE ADMISSION. ON EXAMINATION, HEART IS REGULAR IN RATE AND RHYTHM. BILATERAL LUNGS ARE NOTED WITH DIMINISHED LUNG SOUNDS THROUGHOUT. ABDOMEN IS ROUND, SOFT, AND NON-TENDER WITH NORMAL BOWEL SOUNDS NOTED IN ALL QUADRNATS. TRACE EDEMA NOTED TO BILATERAL LOWER EXTREMITIES. HER VITALS THIS MORNING ARE: 97.9-74-20-97%-136/73. LABS WERE OBTAINED. WBC 3.4, CALCIUM 8.2, TOTAL PROTEIN 6.3, ALBUMIN 2.9. A HYPERCOAG PANEL IS PENDING. WE OBTAINED UPPER AND LOWER EXTREMITY VENOUS DOPPLERS. ALL WERE NEGATIVE FOR DVT. SHE IS CURRENTLY RECEIVING NORMAL SALINE AT 80 ML/HR, A HEPARIN DRIP, ZOFRAN 4MG IV Q6H PRN, NORCO 7.5/325MG PO Q6H PRN PAIN, XANAX 0.5MG PO TID PRN, CELEBREX 200MG PO BID, FLEXERIL 10MG PO BID, COLACE 200MG PO HS, LISINOPRIL 10MG PO DAILY, AND MORPHINE SULFATE 2MG IV Q4H PRN. WE WILL CONTINUE WITH CURRENT PLAN OF CARE TODAY AND ADD COUMADIN 5MG PO DAILY. WHEN THERAPUTIC, WE WILL DISCONTINUE HEPARIN. OTHERWISE, WE PLAN TO FOLLOW UP WITH AM LABS AND CONTINUE TO MONITOR. TIME SPENT ON CLINICAL ASSESSMENT, REVIEWING LABS AND IMAGING, DECISION MAKING, AND DOCUMENTATION GREATER THAN 45 MINUTES. - Past Medical Family Social History Past Med/Fam/Surg Hx: No changes since H&P Allergies: Allergies Penicillins Allergy (Verified 07/19/21 03:43) - Review of Systems ROS: No change since H&P - Vital Signs and I&O's Vital Signs: Temperature 97.7 F Pulse Rate [Left] 98 Pulse Rate 65 Respiratory Rate 20 Blood Pressure [Right Arm] 128/71 Blood Pressure 141/68 O2 Sat by Pulse Oximetry 97 Intake and Output: Intake & Output 07/21/21 07/22/21 07/23/21 07/24/21 11:59 11:59 11:59 11:59 Intake Total 4135 / 4135 3903 / 3903 2947 / 2947 1636 / 1636 Output Total 3 / 3 Balance 4132 / 4132 3903 / 3903 2947 / 2947 1636 / 1636 - Physical Exam Oriented: Normal Eyes: Normal Ear: Normal Nose: Normal Throat: Normal Respiratory: Normal, Generalized, Diminished Cardiovascular: Normal : Normal Auscultation: Bowel Sounds: Normal Tenderness: Normal Skin: Normal Musculoskeletal: Normal Psychiatric: Normal Mood Description: Calm Affect: Normal Speech Pattern: Clear, Appropriate - Laboratory and Diagnostics Result Diagrams: 07/23/21 05:31 07/23/21 05:31 Labs: Laboratory WBC 4.3 X10^3/uL (3.6-10.0) 07/23/21 05:31 RBC 4.25 X10^6/uL (3.5-5.4) 07/23/21 05:31 Hgb 13.8 g/dL (12.0-16.0) 07/23/21 05:31 Hct 40.8 % (36.0-47.0) 07/23/21 05:31 MCV 96.2 fL (80.0-100.0) 07/23/21 05:31 MCH 32.6 pg (27.0-34.0) 07/23/21 05:31 MCHC 33.9 g/dL (33.0-35.0) 07/23/21 05:31 RDW 13.8 % (11.6-16.5) 07/23/21 05:31 Plt Count 176 X10^3/uL (150.0-450.0) 07/23/21 05:31 MPV 8.8 fL (7.4-11.0) 07/23/21 05:31 Neut % (Auto) 39.2 % (42.0-75.0) L 07/23/21 05:31 Lymph % (Auto) 45.9 % (21.0-51.0) 07/23/21 05:31 [place] % (Auto) 7.8 % (0.0-13.0) 07/23/21 05:31 Eos % (Auto) 5.7 % (0.9-2.9) H 07/23/21 05:31 Baso % (Auto) 1.4 % (0.2-1.0) H 07/23/21 05:31 Neut # (Auto) 1.7 x10^3/uL (2.2-4.8) L 07/23/21 05:31 Lymph # (Auto) 2.0 X10^3/uL (1.3-2.9) 07/23/21 05:31 [place] # (Auto) 0.3 x10^3/uL (0.3-0.8) 07/23/21 05:31 Eos # (Auto) 0.2 x10^3/uL (0.0-0.2) 07/23/21 05:31 Baso # (Auto) 0.1 X10^3/uL (0.0-0.1) 07/23/21 05:31 Absolute Nucleated RBC 0.1 /100WBC 07/23/21 05:31 ESR 18 MM/HOUR (0-20) 07/19/21 15:24 PT 13.8 SECONDS (11.8-14.3) 07/23/21 05:31 PT Cancelled 07/23/21 05:31 INR Target Range - 07/23/21 05:31 INR Target Range Cancelled 07/23/21 05:31 INR 1.11 (0.8-1.3) 07/23/21 05:31 INR Cancelled 07/23/21 05:31 APTT 65.7 SECONDS (22.9-36.5) H 07/23/21 11:50 PTT Comment - 07/23/21 11:50 D-Dimer 3.44 ug/ml (0.0-0.57) H* 07/19/21 04:17 Sodium 143 mmol/L (136-145) 07/23/21 05:31 Corrected Sodium TNP 07/23/21 05:31 Potassium 3.6 mmol/L (3.5-5.1) 07/23/21 05:31 Chloride 107 mmol/L (98-107) 07/23/21 05:31 Carbon Dioxide 24.3 mmol/L (21-32) 07/23/21 05:31 BUN 7 mg/dL (7-18) 07/23/21 05:31 Creatinine 0.57 mg/dL (0.55-1.02) 07/23/21 05:31 Est GFR (MDRD) Af Amer > 60 (>60) 07/23/21 05:31 Est GFR (MDRD) Non-Af > 60 (>60) 07/23/21 05:31 Glucose 90 mg/dL (65-99) 07/23/21 05:31 Calcium 8.5 mg/dL (8.5-10.1) 07/23/21 05:31 Corrected Calcium 9.2 mg/dL (8.5-10.1) 07/23/21 05:31 Total Bilirubin 0.30 mg/dL (0.2-1.0) 07/23/21 05:31 AST 39 Units/L (15-37) H 07/23/21 05:31 ALT 54 Units/L (12-78) 07/23/21 05:31 Alkaline Phosphatase 96 Units/L (46-116) 07/23/21 05:31 Creatine Kinase 71 Units/L (26-192) 07/19/21 04:17 CK-MB (CK-2) < 1.0 ng/mL (0-4.0) 07/19/21 04:17 CK/CKMB % Calc 1.4 % (<4) 07/19/21 04:17 Troponin I < 0.02 ng/mL (0-1.5) 07/19/21 04:17 C-Reactive Protein 6.50 mg/L (0-3.0) H 07/19/21 15:24 Total Protein 6.7 g/dL (6.4-8.2) 07/23/21 05:31 Albumin 3.1 g/dL (3.4-5.0) L 07/23/21 05:31 Globulin 3.6 g/dL (2.5-4.5) 07/23/21 05:31 Albumin/Globulin Ratio 0.9 Ratio (1.1-2.1) L 07/23/21 05:31 Homocysteine 7 umol/L (0-15) 07/19/21 15:24 SARS CoV-2 RNA Rapid ADE[facility] Negative (NEGATIVE) 07/19/21 08:54 - Plan (1) Bilateral pulmonary embolism Status: Acute Plan: NORMAL SALINE AT 80 ML/HR, A HEPARIN DRIP, COUMADIN 5MG PO DAILY, ZOFRAN 4MG IV Q6H PRN, NORCO 7.5/325MG PO Q6H PRN PAIN, XANAX 0.5MG PO TID PRN, CELEBREX 200MG PO BID, FLEXERIL 10MG PO BID, COLACE 200MG PO HS, LISINOPRIL 10MG PO DAILY, AND MORPHINE SULFATE 2MG IV Q4H PRN.
--- NOTE | 2021-07-23 16:38 | PCM.PROG ---
Progress Note - Progress Note for Day of Date of Exam: 07/23/21 - Subjective Subjective: WAS ADMITTED FOR TREATMENT OF BILATERAL PULMONARY EMBOLISM. TODAY, SHE IS ALERT AND ORIENTED, LYING IN BED ON MORNING ROUNDS. SHE REPORTS SHORTNESS OF BREATH, WEAKNESS, AND GENERALIZED PAIN TODAY. SHE DOES ADMIT TO SLIGHT IMPROVEMENT IN SYMPTOMS SINCE ADMISSION. ON EXAMINATION, HEART IS REGULAR IN RATE AND RHYTHM. BILATERAL LUNGS ARE NOTED WITH DIMINISHED LUNG SOUNDS THROUGHOUT. ABDOMEN IS ROUND, SOFT, AND NON-TENDER WITH NORMAL BOWEL SOUNDS NOTED IN ALL QUADRNATS. TRACE EDEMA NOTED TO BILATERAL LOWER EXTREMITIES. HER VITALS THIS MORNING ARE: 97.7-87-20-94%-129/60. LABS WERE OBTAINED. AST 39, ALBUMIN 3.1. HER INR IS 1.11 TODAY. A HYPERCOAG PANEL IS PENDING. WE OBTAINED UPPER AND LOWER EXTREMITY VENOUS DOPPLERS. ALL WERE NEGATIVE FOR DVT. SHE IS CURRENTLY RECEIVING NORMAL SALINE AT 80 ML/HR, A HEPARIN DRIP, COUMADIN 5MG PO HS, ZOFRAN 4MG IV Q6H PRN, NORCO 7.5/325MG PO Q6H PRN PAIN, XANAX 0.5MG PO TID PRN, CELEBREX 200MG PO BID, FLEXERIL 10MG PO BID, COLACE 200MG PO HS, LISINOPRIL 10MG PO DAILY, AND MORPHINE SULFATE 2MG IV Q4H PRN. WE WILL CONTINUE WITH CURRENT PLAN OF CARE TODAY. OTHERWISE, WE PLAN TO FOLLOW UP WITH AM LABS AND CONTINUE TO MONITOR. TIME SPENT ON CLINICAL ASSESSMENT, REVIEWING LABS AND IMAGING, DECISION MAKING, AND DOCUMENTATION GREATER THAN 45 MINUTES. - Past Medical Family Social History Past Med/Fam/Surg Hx: No changes since H&P Allergies: Allergies Penicillins Allergy (Verified 07/19/21 03:43) - Review of Systems ROS: No change since H&P - Vital Signs and I&O's Vital Signs: Temperature 97.5 F Pulse Rate [Left] 74 Pulse Rate 65 Respiratory Rate 20 Blood Pressure [Right Arm] 129/68 Blood Pressure 141/68 O2 Sat by Pulse Oximetry 97 Intake and Output: Intake & Output 07/21/21 07/22/21 07/23/21 07/24/21 11:59 11:59 11:59 11:59 Intake Total 4135 / 4135 3903 / 3903 2947 / 2947 1636 / 1636 Output Total 3 / 3 Balance 4132 / 4132 3903 / 3903 2947 / 2947 1636 / 1636 - Physical Exam Oriented: Normal Eyes: Normal Ear: Normal Nose: Normal Throat: Normal Respiratory: Normal, Generalized, Diminished Cardiovascular: Normal : Normal Auscultation: Bowel Sounds: Normal Tenderness: Normal Skin: Normal Musculoskeletal: Normal Psychiatric: Normal Mood Description: Calm Affect: Normal Speech Pattern: Clear, Appropriate - Laboratory and Diagnostics Result Diagrams: 07/23/21 05:31 07/23/21 05:31 Labs: Laboratory WBC 4.3 X10^3/uL (3.6-10.0) 07/23/21 05:31 RBC 4.25 X10^6/uL (3.5-5.4) 07/23/21 05:31 Hgb 13.8 g/dL (12.0-16.0) 07/23/21 05:31 Hct 40.8 % (36.0-47.0) 07/23/21 05:31 MCV 96.2 fL (80.0-100.0) 07/23/21 05:31 MCH 32.6 pg (27.0-34.0) 07/23/21 05:31 MCHC 33.9 g/dL (33.0-35.0) 07/23/21 05:31 RDW 13.8 % (11.6-16.5) 07/23/21 05:31 Plt Count 176 X10^3/uL (150.0-450.0) 07/23/21 05:31 MPV 8.8 fL (7.4-11.0) 07/23/21 05:31 Neut % (Auto) 39.2 % (42.0-75.0) L 07/23/21 05:31 Lymph % (Auto) 45.9 % (21.0-51.0) 07/23/21 05:31 [place] % (Auto) 7.8 % (0.0-13.0) 07/23/21 05:31 Eos % (Auto) 5.7 % (0.9-2.9) H 07/23/21 05:31 Baso % (Auto) 1.4 % (0.2-1.0) H 07/23/21 05:31 Neut # (Auto) 1.7 x10^3/uL (2.2-4.8) L 07/23/21 05:31 Lymph # (Auto) 2.0 X10^3/uL (1.3-2.9) 07/23/21 05:31 [place] # (Auto) 0.3 x10^3/uL (0.3-0.8) 07/23/21 05:31 Eos # (Auto) 0.2 x10^3/uL (0.0-0.2) 07/23/21 05:31 Baso # (Auto) 0.1 X10^3/uL (0.0-0.1) 07/23/21 05:31 Absolute Nucleated RBC 0.1 /100WBC 07/23/21 05:31 ESR 18 MM/HOUR (0-20) 07/19/21 15:24 PT 13.8 SECONDS (11.8-14.3) 07/23/21 05:31 PT Cancelled 07/23/21 05:31 INR Target Range - 07/23/21 05:31 INR Target Range Cancelled 07/23/21 05:31 INR 1.11 (0.8-1.3) 07/23/21 05:31 INR Cancelled 07/23/21 05:31 APTT 65.7 SECONDS (22.9-36.5) H 07/23/21 11:50 PTT Comment - 07/23/21 11:50 D-Dimer 3.44 ug/ml (0.0-0.57) H* 07/19/21 04:17 Sodium 143 mmol/L (136-145) 07/23/21 05:31 Corrected Sodium TNP 07/23/21 05:31 Potassium 3.6 mmol/L (3.5-5.1) 07/23/21 05:31 Chloride 107 mmol/L (98-107) 07/23/21 05:31 Carbon Dioxide 24.3 mmol/L (21-32) 07/23/21 05:31 BUN 7 mg/dL (7-18) 07/23/21 05:31 Creatinine 0.57 mg/dL (0.55-1.02) 07/23/21 05:31 Est GFR (MDRD) Af Amer > 60 (>60) 07/23/21 05:31 Est GFR (MDRD) Non-Af > 60 (>60) 07/23/21 05:31 Glucose 90 mg/dL (65-99) 07/23/21 05:31 Calcium 8.5 mg/dL (8.5-10.1) 07/23/21 05:31 Corrected Calcium 9.2 mg/dL (8.5-10.1) 07/23/21 05:31 Total Bilirubin 0.30 mg/dL (0.2-1.0) 07/23/21 05:31 AST 39 Units/L (15-37) H 07/23/21 05:31 ALT 54 Units/L (12-78) 07/23/21 05:31 Alkaline Phosphatase 96 Units/L (46-116) 07/23/21 05:31 Creatine Kinase 71 Units/L (26-192) 07/19/21 04:17 CK-MB (CK-2) < 1.0 ng/mL (0-4.0) 07/19/21 04:17 CK/CKMB % Calc 1.4 % (<4) 07/19/21 04:17 Troponin I < 0.02 ng/mL (0-1.5) 07/19/21 04:17 C-Reactive Protein 6.50 mg/L (0-3.0) H 07/19/21 15:24 Total Protein 6.7 g/dL (6.4-8.2) 07/23/21 05:31 Albumin 3.1 g/dL (3.4-5.0) L 07/23/21 05:31 Globulin 3.6 g/dL (2.5-4.5) 07/23/21 05:31 Albumin/Globulin Ratio 0.9 Ratio (1.1-2.1) L 07/23/21 05:31 Homocysteine 7 umol/L (0-15) 07/19/21 15:24 SARS CoV-2 RNA Rapid ADE[facility] Negative (NEGATIVE) 07/19/21 08:54 - Plan (1) Bilateral pulmonary embolism Status: Acute Plan: NORMAL SALINE AT 80 ML/HR, A HEPARIN DRIP, COUMADIN 5MG PO DAILY, ZOFRAN 4MG IV Q6H PRN, NORCO 7.5/325MG PO Q6H PRN PAIN, XANAX 0.5MG PO TID PRN, CELEBREX 200MG PO BID, FLEXERIL 10MG PO BID, COLACE 200MG PO HS, LISINOPRIL 10MG PO DAILY, AND MORPHINE SULFATE 2MG IV Q4H PRN.
[2021-07-23] MEDS ORDERED: HEPARIN SODIUM IN D5W 25,000 UNITS/500 ML BAG ONE ×2 (17:11→19:10)
[2021-07-23] MEDS: HEPARIN SODIUM IN D5W 25,000 UNITS/500 ML BAG IV PRN (20:25)
[2021-07-23] MEDS: COLACE CAP 100 MG PO SCH (20:26)
[2021-07-23] MEDS: COUMADIN TAB 5 MG (JANTOVEN) PO SCH (20:27)
[2021-07-24 06:49] LABS: ALANINE AMINOTRANSFERASE 67 Units/L (12-78); ALKALINE PHOSPHATASE 94 Units/L (46-116); ASPARTATE AMINO TRANSFERASE 50 Units/L (15-37); BLOOD UREA NITROGEN 11 mg/dL (7-18); CALCIUM 8.6 mg/dL (8.5-10.1); CARBON DIOXIDE 25.7 mmol/L (21-32); CHLORIDE 108 mmol/L (98-107); COR CA(FOR HYPOALB) 9.4 mg/dL (8.5-10.1); CREATININE 0.59 mg/dL (0.55-1.02); SODIUM 143 mmol/L (136-145); TOTAL PROTEIN 6.6 g/dL (6.4-8.2); eGFR NON BLACK RACES > 60 (>60)
[2021-07-24 07:08] LABS: BASOPHILS # (AUTO) 0.1 X10^3/uL (0.0-0.1); BASOPHILS % (AUTO) 1.1 % (0.2-1.0); EOSINOPHILS # (AUTO) 0.3 x10^3/uL (0.0-0.2); EOSINOPHILS % (AUTO) 5.7 % (0.9-2.9); HEMATOCRIT 39.3 % (36.0-47.0); HEMOGLOBIN 13.4 g/dL (12.0-16.0); LYMPHOCYTES # (AUTO) 2.4 X10^3/uL (1.3-2.9); LYMPHOCYTES % (AUTO) 43.1 % (21.0-51.0); MEAN CORPUSCULAR HEMOGLOBIN 33.2 pg (27.0-34.0); MEAN CORPUSCULAR HGB CONC 34.2 g/dL (33.0-35.0); MEAN CORPUSCULAR VOLUME 97.2 fL (80.0-100.0); MONOCYTES # (AUTO) 0.4 x10^3/uL (0.3-0.8); MONOCYTES % (AUTO) 7.5 % (0.0-13.0); NEUTROPHILS # (AUTO) 2.4 x10^3/uL (2.2-4.8); NEUTROPHILS % (AUTO) 42.6 % (42.0-75.0); PLATELET COUNT 178 X10^3/uL (150.0-450.0); RED BLOOD COUNT 4.04 X10^6/uL (3.5-5.4); RED CELL DISTRIBUTION WIDTH 13.9 % (11.6-16.5); WHITE BLOOD COUNT 5.5 X10^3/uL (3.6-10.0)
[2021-07-24] MEDS ORDERED: MICRO K EXTEN CAP 10 MEQ PO PRN (07:13)
[2021-07-24] MEDS ORDERED: K-DUR TAB 20 MEQ PO PRN (07:13)
[2021-07-24] MEDS ORDERED: K-RIDER 10 MEQ/NS 100 ML 10 MEQ/100 ML BAG IV PRN (07:13)
[2021-07-24] MEDS ORDERED: POTASSIUM CHLORIDE LIQ 20 MEQ UDC PO PRN (07:13)
[2021-07-24] MEDS ORDERED: POTASSIUM CHL 60 MEQ/NS 0.45% 500 ML IV PRN (07:13)
[2021-07-24] MEDS ORDERED: POTASSIUM CHL 40 MEQ/NS 0.45% 500 ML IV PRN (07:13)
[2021-07-24] MEDS ORDERED: KLOR-CON PO PRN (07:13)
[2021-07-24] MEDS: FLEXERIL TAB 10 MG PO SCH (08:59)
[2021-07-24] MEDS: ZESTRIL TAB 10 MG PO SCH (08:59)
[2021-07-24] MEDS: CELEBREX PO SCH (08:59)
[2021-07-24] MEDS: NS 1000 ML 1,000 ML IV SCH (08:59)
[2021-07-24] MEDS: XANAX PO PRN (09:00)
[2021-07-24 11:08] LABS: PTT-D HEPARIN NEUT 48
[2021-07-24 11:09] LABS: THROMBIN TIME 25.9
[2021-07-24 11:10] LABS: REPTILASE TIME 17.5
[2021-07-24 11:16] VITALS: BP 138/75
[2021-07-24 13:31] LABS: ANTI-NUCLEAR ANTIBODY TEST None Detected (None Detected); PROTEIN C ACTIVITY 147 % (83-168)
== END 2021-07-24 12:10 | disposition home health service (06) | DRG 176 ==
LOC: ER 03:22 → OBS 03:22 → OBSVTOIN 08:52 → OBS 10:40
PROVIDERS: ADMIT Internal Medicine; ATTEND Internal Medicine
DX: I10 Essential (primary) hypertension; I25.10 Atherosclerotic heart disease of native coronary artery without angina pectoris; R60.0 Localized edema; R53.1 Weakness; I26.94 Multiple subsegmental thrombotic pulmonary emboli without acute cor pulmonale; R07.89 Other chest pain; R79.89 Other specified abnormal findings of blood chemistry; Z20.822 Contact with and (suspected) exposure to COVID-19; R94.31 Abnormal electrocardiogram [ECG] [EKG]; R06.02 Shortness of breath